=== PATIENT | male | born 1940 | race Caucasian/White ===

== ENCOUNTER 2017-06-02 12:14 | Emergency (ER) | payer MEDICARE ==
[~2017-06-02] VITALS: Ht 172.7 cm; Wt 81.6 kg
[2017-06-02 12:23] VITALS: BP 226/94
[2017-06-02] MEDS ORDERED: LIDOCAINE 1% INJ PF 5ML AMP IJ ONE (14:00)
[2017-06-02] MEDS ORDERED: BACITRACIN TOP OINT 1 UD PKG TOP ONE (14:00)
[2017-06-02] MEDS ORDERED: LIDOCAINE 1% INJ PF 5ML AMP ID ONE (14:00)
[2017-06-02] MEDS ORDERED: LIDOCAINE 1% (LOCAL ANESTH.) PF 5ml SDV IJ ONE (14:15)
[2017-06-02] MEDS ORDERED: TETANUS-DIPTH-ACEL PERTUSSIS 0.5ML SYRG IM ONE (14:45)
== END 2017-06-02 14:45 | disposition home or self-care (01) ==
LOC: ER 12:14
DX: S61.217A Laceration without foreign body of left little finger without damage to nail, initial encounter (principal); W22.8XXA Striking against or struck by other objects, initial encounter; Y93.89 Activity, other specified; Y99.8 Other external cause status; Y92.89 Other specified places as the place of occurrence of the external cause
CPT/HCPCS: 12001; 73130; 90715